=== PATIENT | female | born 1960 | race Caucasian/White ===

== ENCOUNTER 2020-04-22 15:01 | Emergency (ER) | payer BC, MEDICAID ==
[2020-04-22] MEDS ORDERED: Sodium Chloride 0.9% 1,000 ML IV ONE (15:40)
[2020-04-22] MEDS ORDERED: Ondansetron 4 MG/2 ML SDV IVPUSH ONE ×2 (15:49→18:49)
[2020-04-22] MEDS ORDERED: Morphine 2 MG/ML SYRINGE IVPUSH ONE (16:14)
--- NOTE | 2020-04-22 16:24 | PCM.SN.2 ---
- Free Text/Narrative Note: 12-Lead ECG Interpretation Acquired: 4:08 PM Rhythm: Sinus rhythm Rate: 80 bpm Caruthers: Normal Intervals: Normal Ectopy: None RV Strain: No obvious RV strain pattern. ST Segments/T-Waves: T wave inversions in lead III, otherwise no notable changes Acute Ischemic Changes: None apparent Interpretation: No STEMI
--- NOTE | 2020-04-22 16:34 | CR ---
Indication: Vomiting Technique: Chest 1 view Comparison: None Findings/Impression: Cardiovascular and mediastinum: Heart size and vasculature are normal in caliber and appearance. Mediastinum is within normal limits. Lungs and pleural space: Lungs are clear. No sign of infiltrate or mass. No sign of pleural effusion. No pneumothorax. Bones and soft tissues: No significant findings. Dictated by Ana Cristina Helm MD @ Apr 22 2020 4:32PM Signed by Dr. Ana Cristina Helm @ Apr 22 2020 4:33PM
[2020-04-22 16:37] LABS: BLOOD UREA NITROGEN,BUN 16 mg/dL (7.0-18.0); CARBON DIOXIDE,CO2 26.5 mmol/L (21.0-32.0); CHLORIDE,CL 102 mmol/L (98-107); GLUCOSE RANDOM 174 mg/dL (74-106); LIPASE 105 U/L (73-393); POTASSIUM,K 4.1 mmol/L (3.5-5.1); SODIUM,NA 139 mmol/L (136-145)
--- NOTE | 2020-04-22 16:59 | EDM.PDOC ---
ED HPI GENERAL MEDICAL PROBLEM - General Chief Complaint: Gastrointestinal Problem Stated Complaint: FROM CLINIC Time Seen by Provider: 04/22/20 15:03 Source of Information: Reports: Patient History Limitations: Reports: No Limitations - History of Present Illness INITIAL COMMENTS - FREE TEXT/NARRATIVE: HISTORY AND PHYSICAL: History of present illness: Patient is a 59-year-old female who presents to the ED today with concern of nausea and vomiting since yesterday. Patient states that she went to the respiratory clinic to be seen and evaluated there and was sent to the emergency room for further evaluation. I did receive a call from Dr. Fowler from the respiratory clinic stating that patient has been continuously vomiting and he has been unable to assess her completely due to vomiting and feels that she needs some further intervention for her symptoms. Dr. Fowler states he has not done any testing over in the clinic. Patient states that she has been vomiting since this AM which has been worsening since being at the respiratory clinic the past few hours. She states that she has not been able to eat or drink today due to vomiting. Patient states she has a history of diabetes, and hyperlipidemia. Patient denies any other associated symptoms. Patient denies any associated abdominal pain. Patient denies fever, chills, chest pain, shortness of breath, or cough. Denies headache, neck stiff ness, change in vision, syncope, or near syncope. Denies diarrhea, constipation, or dysuria. Has not noted any blood in urine or stool. Review of systems: As per history of present illness and below otherwise all systems reviewed and negative. Past medical history: As per history of present illness and as reviewed below otherwise noncontributory. Surgical history: As per history of present illness and as reviewed below otherwise noncontributory. Social history: See social history for further information Family history: As per history of present illness and as reviewed below otherwise noncontributory. Physical exam: General: Patient is alert, oriented, and in no acute distress. Patient laying comfortably on exam table, tired appearing. HEENT: Atraumatic, normocephalic, pupils equal and reactive bilaterally, negative for conjunctival pallor or scleral icterus, mucous membranes moist, TMs normal bilaterally, throat clear, neck supple, nontender, trachea midline. No drooling or trismus noted. No meningeal signs. No hot potato voice noted. Lungs: Clear to auscultation, breath sounds equal bilaterally, chest nontender. Heart: S1S2, regular rate and rhythm without overt murmur Abdomen: Soft, nondistended, nontender, negative Sullivan sign, negative rebound tenderness. Negative for masses or hepatosplenomegaly. Negative for costovertebral tenderness. Pelvis: Stable nontender. Genitourinary: Deferred. Rectal: Deferred. Skin: Intact, warm, dry. No lesions or rashes noted. Extremities: Atraumatic, negative for cords or calf pain. Neurovascular u nremarkable. Neuro: Awake, alert, oriented. Cranial nerves II through XII unremarkable. Cerebellum unremarkable. Motor and sensory unremarkable throughout. Exam nonfocal. Notes: HEART score 2. Low to moderate risk. Upon initial exam, patient is tired appearing but is not vomiting. Vitals stable. She does not have any vomiting today in the ER. Patient is requesting discharge from the ED and does not want to stay to repeat troponin for a second time. Upon discharge, as patient was about to leave, she began vomiting. She then informs me that she has been having heart burn that she forgot to inform me of upon initial HPI. Upon reexamination, vitals remain stable. Patient is agreeable to staying for repeat troponin, ekg, and further therapeutics. Zofran, Benadryl, GI cocktail and Protonix given. At this time, repeat troponin and EKG were performed. No acute changes on eKG and troponin negative. Following reevaluation of patient, she no longer has any episodes of vomiting, states she feels improved, and able to tolerate PO intake. She is requesting discharge from the ED. Strict return precautions thoroughly discussed and discussed the importance for follow up with a PCP. Voices understanding and is agreeable to plan of care. Denies any further questions or concerns at this time. Diagnostics: CBC, CMP, UA, Lipase, EKG x 2, CXR, Trop x 2, Abd/Pelvic CT w cont., COVID19 Therapeutics: NS, Zofran, Morphine, Protonix, GI Cocktail, Benadryl Prescription: Zofran Impression: Nausea and vomiting Heartburn Plan: 1. Take patient as prescribed. 2. You can take [id number] Prilosec as directed and as discussed. 3. Return to the ED as needed and as discussed. Follow up with a primary care provider as discussed. Definitive disposition and diagnosis as appropriate pending reevaluation and review of above. Upper Abdomen Pain Score (Numeric/FACES): 5 - Related Data Allergies Allergy/AdvReac Type Severity Reaction Status Date / Time No Known Allergies Allergy Verified 04/22/20 15:04 Home Meds: Home Meds Aspirin 81 mg PO DAILY 04/22/20 [History] Ondansetron [Zofran ODT] 4 mg PO Q6H PRN #8 tab.dis 04/22/20 [Rx] Sertraline [Zoloft] 25 mg PO DAILY 04/22/20 [History] atorvaSTATin [Lipitor] 10 mg PO DAILY 04/22/20 [History] lisinopriL [Lisinopril] 10 mg PO DAILY 04/22/20 [History] metFORMIN [Glucophage] 850 mg PO BID 04/22/20 [History] Past Medical History HEENT History: Reports: None Cardiovascular History: Reports: High Cholesterol, Hypertension Respiratory History: Reports: None Gastrointestinal History: Reports: GERD Genitourinary History: Reports: None 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: Musculoskeletal History: Reports: Arthritis Neurological History: Reports: None Psychiatric History: Reports: Anxiety Endocrine/Metabolic History: Reports: Diabetes, Type II Hematologic History: Reports: None Oncologic (Cancer) History: Reports: None Dermatologic History: Reports: None - Infectious Disease History Infectious Disease History: Reports: None Social & Family History - Tobacco Use Tobacco Use Status *Q: Never Tobacco User - Caffeine Use Caffeine Use: Reports: Coffee - Recreational Drug Use Recreational Drug Use: No ED ROS GENERAL - Review of Systems Review Of Systems: Comprehensive ROS is negative, except as noted in HPI. ED EXAM, GENERAL - Physical Exam Exam: See Below (see dictation) Course - Vital Signs Last Recorded V/S: Last Vital Signs Temp 96.9 F 04/22/20 21:05 Pulse 84 04/22/20 21:05 Resp 18 04/22/20 21:05 BP 145/82 H 04/22/20 21:05 Pulse Ox 94 L 04/22/20 21:05 - Orders/Labs/Meds Orders: Active Orders 24 hr Category Date Time Status CORONAVIRUS COVID-19 PCR PHL Stat Lab 04/22/20 16:40 Ordered Labs: Laboratory Tests 12/01/20 12/01/20 12/01/20 Range/Units 16:00 16:00 16:00 WBC 12.90 H (4.0-11.0) K/uL RBC 4.99 (4.30-5.90) M/uL Hgb 15.2 (12.0-16.0) g/dL Hct 45.4 (36.0-46.0) % MCV 91.0 (80.0-98.0) fL MCH 30.5 (27.0-32.0) pg MCHC 33.5 (31.0-37.0) g/dL RDW Std Deviation 43.1 (28.0-62.0) fl RDW Coeff of Dorinda 13 (11.0-15.0) % Plt Count 409 H (150-400) K/uL MPV 9.60 (7.40-12.00) fL Neut % (Auto) 88.8 H (48.0-80.0) % Lymph % (Auto) 8.7 L (16.0-40.0) % Keith % (Auto) 2.2 (0.0-15.0) % Eos % (Auto) 0.1 (0.0-7.0) % Baso % (Auto) 0.2 (0.0-1.5) % Neut # (Auto) 11.5 H (1.4-5.7) K/uL Lymph # (Auto) 1.1 (0.6-2.4) K/uL Keith # (Auto) 0.3 (0.0-0.8) K/uL Eos # (Auto) 0.0 (0.0-0.7) K/uL Baso # (Auto) 0.0 (0.0-0.1) K/uL Nucleated RBC % 0.0 /100WBC Nucleated RBCs # 0 K/uL Sodium 139 (136-145) mmol/L Potassium 4.1 (3.5-5.1) mmol/L Chloride 102 (98-107) mmol/L Carbon Dioxide 26.5 (21.0-32.0) mmol/L BUN 16 (7.0-18.0) mg/dL Creatinine 0.8 (0.6-1.0) mg/dL Est Cr Clr Drug Dosing 77.32 mL/min Estimated GFR (MDRD) > 60.0 ml/min Glucose 174 H (74-106) mg/dL Calcium 9.4 (8.5-10.1) mg/dL Total Bilirubin 0.5 (0.2-1.0) mg/dL AST 12 L (15-37) IU/L ALT 34 (14-63) IU/L Alkaline Phosphatase 102 (46-116) U/L Troponin I < 0.050 (0.000-0.056) ng/mL Total Protein 8.5 H (6.4-8.2) g/dL Albumin 4.3 (3.4-5.0) g/dL Globulin 4.2 H (2.6-4.0) g/dL Albumin/Globulin Ratio 1.0 (0.9-1.6) Lipase 105 (73-393) U/L Urine Color Urine Appearance Urine pH (5.0-8.0) Ur Specific [place] (1.001-1.035) Urine Protein (NEGATIVE) mg/dL Urine Glucose (UA) (NEGATIVE) mg/dL Urine Ketones (NEGATIVE) mg/dL Urine Occult Blood (NEGATIVE) Urine Nitrite (NEGATIVE) Urine Bilirubin (NEGATIVE) Urine Urobilinogen (<2.0) EU/dL Ur Leukocyte Esterase (NEGATIVE) Urine RBC (0-2/HPF) Urine WBC (0-5/HPF) Ur Epithelial Cells (NONE-FEW) Urine Bacteria (NEGATIVE) SARS CoV-2 RNA Rapid JAN (NEGATIVE) 04/22/20 04/22/20 04/22/20 Range/Units 16:36 17:30 19:30 WBC (4.0-11.0) K/uL RBC (4.30-5.90) M/uL Hgb (12.0-16.0) g/dL Hct (36.0-46.0) % MCV (80.0-98.0) fL MCH (27.0-32.0) pg MCHC (31.0-37.0) g/dL RDW Std Deviation (28.0-62.0) fl RDW Coeff of Dorinda (11.0-15.0) % Plt Count (150-400) K/uL MPV (7.40-12.00) fL Neut % (Auto) (48.0-80.0) % Lymph % (Auto) (16.0-40.0) % Keith % (Auto) (0.0-15.0) % Eos % (Auto) (0.0-7.0) % Baso % (Auto) (0.0-1.5) % Neut # (Auto) (1.4-5.7) K/uL Lymph # (Auto) (0.6-2.4) K/uL Keith # (Auto) (0.0-0.8) K/uL Eos # (Auto) (0.0-0.7) K/uL Baso # (Auto) (0.0-0.1) K/uL Nucleated RBC % /100WBC Nucleated RBCs # K/uL Sodium (136-145) mmol/L Potassium (3.5-5.1) mmol/L Chloride (98-107) mmol/L Carbon Dioxide (21.0-32.0) mmol/L BUN (7.0-18.0) mg/dL Creatinine (0.6-1.0) mg/dL Est Cr Clr Drug Dosing mL/min Estimated GFR (MDRD) ml/min Glucose (74-106) mg/dL Calcium (8.5-10.1) mg/dL Total Bilirubin (0.2-1.0) mg/dL AST (15-37) IU/L ALT (14-63) IU/L Alkaline Phosphatase (46-116) U/L Troponin I < 0.050 (0.000-0.056) ng/mL Total Protein (6.4-8.2) g/dL Albumin (3.4-5.0) g/dL Globulin (2.6-4.0) g/dL Albumin/Globulin Ratio (0.9-1.6) Lipase (73-393) U/L Urine Color YELLOW Urine Appearance CLEAR Urine pH 5.5 (5.0-8.0) Ur Specific [place] >= 1.030 (1.001-1.035) Urine Protein 30 H (NEGATIVE) mg/dL Urine Glucose (UA) NEGATIVE (NEGATIVE) mg/dL Urine Ketones NEGATIVE (NEGATIVE) mg/dL Urine Occult Blood TRACE-INTACT H (NEGATIVE) Urine Nitrite NEGATIVE (NEGATIVE) Urine Bilirubin NEGATIVE (NEGATIVE) Urine Urobilinogen 0.2 (<2.0) EU/dL Ur Leukocyte Esterase NEGATIVE (NEGATIVE) Urine RBC 1-2 (0-2/HPF) Urine WBC 0-1 (0-5/HPF) Ur Epithelial Cells RARE (NONE-FEW) Urine Bacteria RARE (NEGATIVE) SARS CoV-2 RNA Rapid JAN NEGATIVE (NEGATIVE) Meds: Medications Discontinued Medications Generic Name Dose Route Start Last Admin Trade Name Macarioq PRN Reason Stop Dose Admin Al Hydroxide/Mg Hydroxide 15 0 ml 04/22/20 18:59 04/22/20 19:12 ml/ Lidocaine HCl 5 ml PO 04/22/20 19:00 1 each ONETIME ONE Administration Diphenhydramine HCl 25 mg 04/22/20 19:11 04/22/20 19:35 Benadryl IVPUSH 04/22/20 19:12 25 mg ONETIME ONE Administration Sodium Chloride 1,000 mls @ 999 mls/hr 04/22/20 15:40 04/22/20 15:52 Normal Saline IV 04/22/20 16:40 999 mls/hr BOLUS ONE Administration Pantoprazole Sodium 80 mg/ 20 mls @ 420 mls/hr 04/22/20 18:59 04/22/20 19:12 Sodium Chloride IVPUSH 04/22/20 19:01 420 mls/hr ONETIME ONE Administration Iopamidol 100 ml 04/22/20 18:23 04/22/20 18:24 Isovue Multipack-370 (76%) IVPUSH 04/22/20 18:24 100 ml ONETIME STA Administration Morphine Sulfate 2 mg 04/22/20 16:14 04/22/20 16:20 Morphine IVPUSH 04/22/20 16:15 2 mg ONETIME ONE Administration Ondansetron HCl 4 mg 04/22/20 15:49 04/22/20 15:53 Zofran IVPUSH 04/22/20 15:50 4 mg ONETIME ONE Administration Ondansetron HCl 4 mg 04/22/20 18:49 04/22/20 19:03 Zofran IVPUSH 04/22/20 18:50 4 mg ONETIME ONE Administration Departure - Departure Time of Disposition: 20:55 Disposition: Home, Self-Care 01 Clinical Impression: Heart burn Nausea and vomiting Qualifiers: Vomiting type: unspecified Vomiting Intractability: non-intractable Qualified Code(s): R11.2 - Nausea with vomiting, unspecified - Discharge Information Prescriptions: Ondansetron [Zofran ODT] 4 mg PO Q6H PRN #8 tab.dis PRN Reason: Nausea/Vomiting Instructions: Nausea and Vomiting, Adult, [id number] Referrals: Rosana Blanton NP [Primary Care Provider] - Forms: ED Department Discharge Additional Instructions: The following information is given to patients seen in the emergency department who are being discharged to home. This information is to outline your options for follow-up care. We provide all patients seen in our emergency department with a follow-up referral. The need for follow-up, as well as the timing and circumstances, are variable depending upon the specifics of your emergency department visit. If you don't have a primary care physician on staff, we will provide you with a referral. We always advise you to contact your personal physician following an emergency department visit to inform them of the circumstance of the visit and for follow-up with them and/or the need for any referrals to a consulting specialist. The emergency department will also refer you to a specialist when appropriate. This referral assures that you have the opportunity for follow-up care with a specialist. All of these measure are taken in an effort to provide you with optimal care, which includes your follow-up. Under all circumstances we always encourage you to contact your private physic que who remains a resource for coordinating your care. When calling for follow- up care, please make the office aware that this follow-up is from your recent emergency room visit. If for any reason you are refused follow-up, please contact the [facility] Emergency Department at and asked to speak to the emergency department charge nurse. [facility] [address] [place] [id number] [address] [address] 1. Take patient as prescribed. 2. You can take [id number] Prilosec as directed and as discussed. 3. Return to the ED as needed and as discussed. Follow up with a primary care provider as discussed. Sepsis Event Note (ED) - Evaluation Sepsis Screening Result: No Definite Risk - Focused Exam Vital Signs: Vital Signs Temp Pulse Resp BP Pulse Ox 04/22/20 21:05 96.9 F 84 18 145/82 H 94 L 04/22/20 20:33 96.8 F L 63 18 153/73 H 95 04/22/20 17:37 94 16 171/76 H 97 04/22/20 16:40 77 16 150/73 H 95 04/22/20 16:21 77 16 166/83 H 96 04/22/20 15:35 70 145/79 H 93 L 04/22/20 15:06 96.2 F L 77 16 162/75 H 94 L - My Orders Last 24 Hours: My Active Orders 04/22/20 16:40 CORONAVIRUS COVID-19 PCR PHL Stat - Assessment/Plan Last 24 Hours: My Active Orders 04/22/20 16:40 CORONAVIRUS COVID-19 PCR PHL Stat
--- NOTE | 2020-04-22 17:57 | CT ---
INDICATION: Periumbilical pain, vomiting TECHNIQUE: CT abdomen and pelvis acquired with 100 cc Isovue 370 IV contrast. COMPARISON: None FINDINGS: Lower chest: Bilateral breast implants. Liver: Unremarkable. Spleen: Unremarkable. Pancreas: Unremarkable. Gallbladder and bile ducts: S/p cholecystectomy. Adrenal glands: Unremarkable. Kidneys: Unremarkable. GI tract: Colonic diverticulosis. Appendix is normal. Vascular structures: Minimal atherosclerotic calcifications. Lymph nodes: Unremarkable. Miscellaneous: Unremarkable. No free air or significant free fluid. Pelvic Organs: Unremarkable. Bones: Unremarkable for age. IMPRESSION: No acute intra-abdominal process identified. Colonic diverticulosis. Status post cholecystectomy. Please note that all CT scans at this facility use dose modulation, iterative reconstruction, and/or weight-based dosing when appropriate to reduce radiation dose to as low as reasonably achievable. Dictated by Ana Cristina Helm MD @ Apr 22 2020 5:49PM Signed by Dr. Ana Cristina Helm @ Apr 22 2020 5:55PM
[2020-04-22] MEDS ORDERED: Iopamidol 755 MG/ML 500 ML Multipack Bottle IVPUSH STA (18:23)
[2020-04-22] MEDS ORDERED: Pantoprazole 80 MG in Sodium Chloride 0.9% 20 ML IVPUSH ONE (18:59)
[2020-04-22] MEDS ORDERED: Alum Hydrox/Mag Hydrox/Simeth 15 ML, Lidocaine 2% 5 ML PO ONE ×2 (18:59)
[2020-04-22] MEDS ORDERED: diphenhydrAMINE 50 MG/ML SDV IVPUSH ONE (19:11)
--- NOTE | 2020-04-22 19:57 | PCM.SN.2 ---
- Free Text/Narrative Note: EKG obtained on April 22 1942 hrs. interpreted by myself contemporaneously demonstrates normal sinus rhythm with a rate of 70 normal axis and intervals no acute ischemia.
== END 2020-04-22 21:05 | disposition home or self-care (01) ==
LOC: MW.ED 15:01
DX: R11.2 Nausea with vomiting, unspecified (principal); R12 Heartburn; I10 Essential (primary) hypertension; E78.00 Pure hypercholesterolemia, unspecified; M19.90 Unspecified osteoarthritis, unspecified site; F41.9 Anxiety disorder, unspecified; E11.9 Type 2 diabetes mellitus without complications; Z79.82 Long term (current) use of aspirin; Z79.899 Other long term (current) drug therapy; Z79.84 Long term (current) use of oral hypoglycemic drugs; Z20.828 Contact with and (suspected) exposure to other viral communicable diseases
CPT/HCPCS: 36415; 71045; 74177; 80053; 81001; 83690; 84484; 85025; 87635; 93005; 96374; 96375; 96376; 99284; A9270; C9113; J1200; J2270; J2405; J7030; Q9967; 93010; U0002

== ENCOUNTER 2020-06-24 11:11 | Day surgery (SDC) | payer BC, MEDICAID ==
[~2020-06-24 11:11] MED LIST: Glycopyrrolate 0.2 MG/ML SDV ONE; Lactated Ringers 1,000 ML IV SCH; Lidocaine 2% 5 ML SDV ONE; Midazolam 1 MG/ML 2 ML SDV ONE; Propofol 200 MG/20 ML SDV ONE; Sodium Chloride 0.9% 10 ML SDV IV PRN; Sodium Chloride 0.9% 10 ML Syringe FLUSH PRN; Sodium Chloride 0.9% 2.5 ML Syringe FLUSH PRN
--- NOTE | 2020-06-24 11:45 | PCM.PREANE ---
Preanesthetic Assessment - Anesthesia/Transfusion/Family Hx Anesthesia History: Prior Anesthesia Without Reaction Family History of Anesthesia Reaction: No Transfusion History: No Prior Transfusion(s) - Review of Systems General: No Symptoms Pulmonary: No Symptoms Cardiovascular: No Symptoms Gastrointestinal: No Symptoms Neurological: No Symptoms Other: Reports: None - Physical Assessment NPO Status Date: 06/23/20 Height: 5 ft 8 in Weight: 98.43 kg ASA Class: 2 Mental Status: Alert & Oriented x3 Airway Class: Mallampati = 2 Dentition: Reports: Normal Dentition ROM/Head Extension: Full Lungs: Clear to Auscultation, Normal Respiratory Effort Cardiovascular: Regular Rate, Regular Rhythm - Allergies Allergies/Adverse Reactions: Allergies Allergy/AdvReac Type Severity Reaction Status Date / Time No Known Allergies Allergy Verified 06/18/20 09:43 - Blood Blood Available: No - Anesthesia Plan Pre-Op Medication Ordered: None - Acknowledgements Anesthesia Type Planned: General Anesthesia Pt an Appropriate Candidate for the Planned Anesthesia: Yes Alternatives and Risks of Anesthesia Discussed w Pt/Guardian: Yes Pt/Guardian Understands and Agrees with Anesthesia Plan: Yes PreAnesthesia Questionnaire HEENT History: Reports: None Cardiovascular History: Reports: High Cholesterol, Hypertension Respiratory History: Reports: None Gastrointestinal History: Reports: GERD Genitourinary History: Reports: None 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: Musculoskeletal History: Reports: Arthritis Other Musculoskeletal History: hx of fx arm as a child Neurological History: Reports: None Psychiatric History: Reports: Anxiety Endocrine/Metabolic History: Reports: Diabetes, Type II Other Endocrine/Metabolic History: has taken Synthroid in the past- not for 4 months because "numbers are better" Hematologic History: Reports: None Oncologic (Cancer) History: Reports: None Dermatologic History: Reports: None - Infectious Disease History Infectious Disease History: Reports: None - Past Surgical History Head Surgeries/Procedures: Reports: None GI Surgical History: Reports: Cholecystectomy, Colonoscopy, Other (See Below) Other GI Surgeries/Procedures: Abdominal Liposuction Female Surgical History: Reports: Breast Implant Musculoskeletal Surgical History: Reports: Arthroscopic Knee, Carpal Tunnel, Other (See Below) Other Musculoskeletal Surgeries/Procedures:: arthroscopy left knee, right CTR, ligament repair in ankle - SUBSTANCE USE Tobacco Use Status *Q: Never Tobacco User Recreational Drug Use History: No - HOME MEDS Home Medications: Home Meds Aspirin 81 mg PO DAILY 04/22/20 [History] Sertraline [Zoloft] 150 mg PO DAILY 04/22/20 [History] atorvaSTATin [Lipitor] 80 mg PO BEDTIME 04/22/20 [History] lisinopriL [Lisinopril] 10 mg PO QAM 04/22/20 [History] metFORMIN [Glucophage] 850 mg PO BID 04/22/20 [History] - CURRENT (IN HOUSE) MEDS Current Meds: Current Medications Lactated Ringer's (Ringers, Lactated) 1,000 mls @ 125 mls/hr IV ASDIRECTED JORDYN Sodium Chloride (Saline Flush) 10 ml FLUSH ASDIRECTED PRN PRN Reason: Keep Vein Open Sodium Chloride (Saline Flush) 2.5 ml FLUSH ASDIRECTED PRN PRN Reason: Keep Vein Open Sodium Chloride (Saline Flush) 10 ml FLUSH ASDIRECTED PRN PRN Reason: Keep Vein Open Sodium Chloride (Saline Flush) 2.5 ml FLUSH ASDIRECTED PRN PRN Reason: Keep Vein Open Sodium Chloride (Normal Saline) 10 ml IV ASDIRECTED PRN PRN Reason: IV Use Discontinued Medications Glycopyrrolate (Robinul) Confirm Administered Dose 0.2 mg .ROUTE .STK-MED ONE Stop: 06/24/20 11:03 Lidocaine (Xylocaine-Mpf 2%) Confirm Administered Dose 5 ml .ROUTE .STK-MED ONE Stop: 06/24/20 11:03 Midazolam HCl (Versed 1 Mg/Ml) Confirm Administered Dose 2 mg .ROUTE .STK-MED ONE Stop: 06/24/20 11:02 Propofol (Diprivan 20 Ml) Confirm Administered Dose 600 mg .ROUTE .STK-MED ONE Stop: 06/24/20 11:02
--- NOTE | 2020-06-24 13:46 | PCM.OPNOTE ---
- General Post-Op/Procedure Note Date of Surgery/Procedure: 06/24/20 Operative Procedure(s): Diagnostic EGD and colonoscopy Findings: Normal EGD, biopsies taken of esophagus, antrum body fundus, normal colonoscopy Pre Op Diagnosis: Epigastric pain, change in bowel habits Post-Op Diagnosis: same Anesthesia Technique: MAC Primary Surgeon: Vianca Zapata Condition: Good
--- NOTE | 2020-06-24 14:51 | PCM.POSTAN ---
POST ANESTHESIA ASSESSMENT - MENTAL STATUS Mental Status: Alert, Oriented - VITAL SIGNS Vital Signs: Last Vital Signs Temp 98.1 F 06/24/20 13:56 Pulse 63 06/24/20 13:56 Resp 15 06/24/20 13:56 BP 105/62 06/24/20 13:56 Pulse Ox 96 06/24/20 13:56 - RESPIRATORY Respiratory Status: Respiratory Rate WNL, Airway Patent, O2 Saturation Stable - CARDIOVASCULAR CV Status: Pulse Rate WNL, Blood Pressure Stable - GASTROINTESTINAL GI Status: No Symptoms - POST OP HYDRATION Hydration Status: Adequate & Stable
--- NOTE | 2020-06-24 14:52 | PCM48HPAN ---
Post Anesthesia Note - EVALUATION WITHIN 48HRS OF ANESTHETIC Vital Signs in Normal Range: Yes Patient Participated in Evaluation: Yes Respiratory Function Stable: Yes Airway Patent: Yes Cardiovascular Function Stable: Yes Hydration Status Stable: Yes Pain Control Satisfactory: Yes Nausea and Vomiting Control Satisfactory: Yes Mental Status Recovered: Yes Vital Signs: Last Vital Signs Temp 98.1 F 06/24/20 13:56 Pulse 63 06/24/20 13:56 Resp 15 06/24/20 13:56 BP 105/62 06/24/20 13:56 Pulse Ox 96 06/24/20 13:56
--- NOTE | 2020-06-25 13:07 | OR ---
SURGEON: VIANCA ZAPATA MD DATE OF PROCEDURE: 06/24/2020 PREOPERATIVE DIAGNOSES: Epigastric pain, nausea, vomiting, change in bowel habits. POSTOPERATIVE DIAGNOSES: Normal esophagogastroduodenoscopy, diverticulosis PROCEDURES PERFORMED: Diagnostic esophagogastroduodenoscopy and colonoscopy. PRIMARY SURGEON: Endoscopist: Vianca Zapata MD. ANESTHESIA: MAC. INSTRUMENT USED: Olympus endoscope and colonoscope. EXTENT OF EXAMINATION: To the second portion of duodenum, to the cecum. PREPARATION: Good. LIMITATIONS: None. INDICATIONS FOR EXAMINATION: The patient is a 59-year-old female who presented to clinic with changes in her bowel habits as well as complaints of chronic epigastric pain, nausea and vomiting. The patient underwent a CT scan which showed mild colonic diverticulosis with no evidence of diverticulitis. The decision was made to proceed with a diagnostic esophagogastroduodenoscopy and colonoscopy. I explained the procedure to the patient as well as the expected perioperative course, and risks. She verbalized understanding and wishes to proceed. PROCEDURE IN DETAIL: The patient was brought into the endoscopy suite and placed in the left lateral decubitus position. A time-out was completed verifying the patient's name, age, date of , allergies, and procedure to be performed. Monitored anesthesia care was induced and continuous oxygen was provided via face mask throughout the procedure. A bite block was placed into the patient's mouth. After adequate sedation was achieved, a well-lubricated endoscope was placed in the patient's mouth and advanced under direct visualization to the second portion of duodenum. This appeared normal and a photograph was taken. The scope was then fully withdrawn while examining the color, texture, anatomy, and integrity of mucosa of the upper GI tract. The duodenum appeared normal. The scope was brought into the stomach and a photograph taken of the pylorus and GE junction. Biopsies were taken of the gastric antrum, body, and fundus and sent for histologic review and H pylori testing. The gastric anatomy and mucosa all appeared normal. The scope was brought into the distal esophagus and a photograph was taken of a normal-appearing Z-line. The remainder of the esophagus appeared free of pathology. The scope was removed and this portion of the procedure was terminated. A digital rectal exam was performed. This exam was within normal limits. A well-lubricated colonoscope was inserted in the rectum and advanced under direct visualization to the level of the cecum. The cecum was identified by both visual and anatomic landmarks. A photograph was taken of the cecal cap as well as with the scope retroflexed within the cecum. The patient was noted to have a diverticula within the cecal cap. The scope was fully withdrawn while examining the color, texture, anatomy, and integrity of the mucosa from the cecum to the anal canal. The findings were consistent with normal appearing colonic mucosa. No polyps were seen. The scope was brought into the rectum and retroflexed to allow visualization of the anal canal opening. This appeared normal and a photograph was taken. The scope was straightened out and fully withdrawn. The cecum to anus time was 8 minutes. The patient tolerated the procedure well and was transferred to the PACU in stable condition. ENDOSCOPIC DIAGNOSES: 1. Diverticulosis. 2. Normal appearing esophagogastroduodenoscopy. RECOMMENDATIONS: Follow up in clinic in 2 weeks. DIMITRIOS ACOSTA /[id number] DORIAN
== END 2020-06-24 14:25 | disposition home or self-care (01) ==
LOC: MW.SDS 11:11
PROVIDERS: ATTEND Surgery
DX: K57.30 Diverticulosis of large intestine without perforation or abscess without bleeding (principal); G89.29 Other chronic pain; R10.13 Epigastric pain; I10 Essential (primary) hypertension; E03.9 Hypothyroidism, unspecified; E11.9 Type 2 diabetes mellitus without complications; E55.9 Vitamin D deficiency, unspecified; Z79.82 Long term (current) use of aspirin; Z79.84 Long term (current) use of oral hypoglycemic drugs; Z79.899 Other long term (current) drug therapy; Z98.890 Other specified postprocedural states; E78.00 Pure hypercholesterolemia, unspecified
CPT/HCPCS: 43239; 45378; 82962; 88305; 88312; J2250; J2704; J3490; J7120; 00813; J2001

== ENCOUNTER 2022-02-21 18:58 | Observation (INO) | payer BC ==
[2022-02-21] MEDS ORDERED: methylPREDNISolone Sodium Succinate 125 MG/2 ML SDV IVPUSH ONE ×2 (19:41→19:42)
[2022-02-21] MEDS ORDERED: EPINEPHrine 1 MG/1 ML Amp IM ONE (22:00)
[2022-02-21] MEDS ORDERED: EPINEPHrine 1 MG/1 ML Amp ONE (22:02)
[2022-02-21] MEDS ORDERED: diphenhydrAMINE 50 MG/ML SDV IVPUSH ONE (22:02)
[2022-02-21] MEDS ORDERED: Sodium Chloride 0.9% Inhalation Soln 3 ML Neb INH PRN (22:19)
[2022-02-21] MEDS ORDERED: Racepinephrine 2.25% 0.5 ML Neb Soln NEB ONE (22:19)
[2022-02-21] MEDS ORDERED: Famotidine 20 MG/2 ML SDV IVPUSH STA (22:21)
[2022-02-22] MEDS ORDERED: Aspirin 81 MG Tab.EC ONE (11:03)
[2022-02-22] MEDS ORDERED: diphenhydrAMINE 50 MG/ML SDV ONE ×2 (11:03→19:24)
[2022-02-22] MEDS ORDERED: Insulin Aspart 100 Units/ML 3 ML Pen ONE (11:03)
[2022-02-22] MEDS ORDERED: atorvaSTATin 40 MG Tab ONE (21:42)
[2022-02-23] MEDS ORDERED: diphenhydrAMINE 50 MG/ML SDV ONE ×3 (01:40→11:47)
[2022-02-23] MEDS ORDERED: Aspirin 81 MG Tab.Chew ONE (08:07)
[2022-02-24] MEDS ORDERED: methylPREDNISolone Sodium Succinate 40 MG/1 ML SDV ONE (15:05)
[2022-03-26 11:04] LABS: CARBON DIOXIDE,CO2 21.8 mmol/L (21.0-32.0); POTASSIUM,K 3.9 mmol/L (3.5-5.1)
[2022-04-02 12:13] LABS: CARBON DIOXIDE,CO2 25.4 mmol/L (21.0-32.0); POTASSIUM,K 3.7 mmol/L (3.5-5.1)
== END 2022-02-23 13:30 | disposition home or self-care (01) ==
LOC: MW.ED 18:58 → MW.MS 23:57 → MW.ZCENSUS 02-22 13:52
PROVIDERS: ADMIT Internal Medicine; ATTEND Internal Medicine
DX: T78.3XXA Angioneurotic edema, initial encounter (principal); I10 Essential (primary) hypertension; E11.9 Type 2 diabetes mellitus without complications; E78.00 Pure hypercholesterolemia, unspecified; F41.9 Anxiety disorder, unspecified; F32.A Depression, unspecified; Z79.82 Long term (current) use of aspirin; Z90.49 Acquired absence of other specified parts of digestive tract; Z98.890 Other specified postprocedural states; Z20.822 Contact with and (suspected) exposure to COVID-19; Z79.899 Other long term (current) drug therapy; Z79.84 Long term (current) use of oral hypoglycemic drugs; Z88.8 Allergy status to other drugs, medicaments and biological substances; Z91.013 Allergy to seafood
CPT/HCPCS: 36415; 71045; 80048; 82947; 85025; 87635; A9270; J0171; J1200; J1815; J2930; J3490; 99217; 99218; 99284; U0002

== ENCOUNTER 2022-06-27 20:48 | Emergency (ER) | payer BC ==
[2022-06-27] MEDS ORDERED: Triamcinolone Acetonide 40 MG/ML 1 ML SDV INJECT ONE (22:07)
[2022-06-27] MEDS ORDERED: Lidocaine 1% 5 ML VIAL INJECT ONE (22:08)
[2022-06-29 09:07] LABS: BASO'S 0 x10-3 ul; EO'S 0 x10-3 ul; LYMPH'S 77 x10-3 ul; MONO'S 112 x10-3 ul; OTHER 198 x10-3 ul; PMN'S 0 x10-3 ul
== END 2022-06-27 23:08 | disposition home or self-care (01) ==
LOC: MW.ED 20:48
DX: M25.462 Effusion, left knee (principal); I10 Essential (primary) hypertension; E11.9 Type 2 diabetes mellitus without complications; F41.9 Anxiety disorder, unspecified; E78.00 Pure hypercholesterolemia, unspecified; M19.90 Unspecified osteoarthritis, unspecified site; Z91.013 Allergy to seafood; Z88.8 Allergy status to other drugs, medicaments and biological substances; Z79.82 Long term (current) use of aspirin
CPT/HCPCS: 20610; 73562; 87070; 87075; 87205; 89051; 89060; 99283; J3301; J3490

== ENCOUNTER 2022-09-01 20:19 | Emergency (ER) | payer BC ==
[2022-09-01] MEDS ORDERED: Acetaminophen 500 MG Tab PO ONE (21:53)
[2022-09-01] MEDS ORDERED: Ibuprofen 600 MG Tab PO ONE (23:28)
== END 2022-09-01 23:46 | disposition home or self-care (01) ==
LOC: MW.ED 20:19
DX: M25.562 Pain in left knee (principal); E78.00 Pure hypercholesterolemia, unspecified; I10 Essential (primary) hypertension; K21.9 Gastro-esophageal reflux disease without esophagitis; E11.9 Type 2 diabetes mellitus without complications; Z91.018 Allergy to other foods; Z88.8 Allergy status to other drugs, medicaments and biological substances; Z79.82 Long term (current) use of aspirin; Z79.899 Other long term (current) drug therapy; Z79.84 Long term (current) use of oral hypoglycemic drugs
CPT/HCPCS: 73562; 93971; 99284; A9270; 99283

== ENCOUNTER 2023-08-17 09:11 | Day surgery (SDC) | payer BC ==
[~2023-08-17 09:11] MED LIST changes: -Glycopyrrolate 0.2 MG/ML SDV ONE; -Lactated Ringers 1,000 ML IV SCH; -Lidocaine 2% 5 ML SDV ONE; -Midazolam 1 MG/ML 2 ML SDV ONE; -Propofol 200 MG/20 ML SDV ONE; -Sodium Chloride 0.9% 10 ML SDV IV PRN; -Sodium Chloride 0.9% 10 ML Syringe FLUSH PRN; -Sodium Chloride 0.9% 2.5 ML Syringe FLUSH PRN; +ceFAZolin 2 GM in Sodium Chloride 0.9% 50 ML IV ONE
[2023-08-17] MEDS ORDERED: droPERidol 5 MG/2 ML SDV IVPUSH PRN (09:12)
[2023-08-17] MEDS ORDERED: HYDROmorphone 1 MG/ML Syringe IVPUSH PRN (09:12)
[2023-08-17] MEDS ORDERED: Metoclopramide 10 MG/2 ML SDV IVPUSH PRN (09:12)
[2023-08-17] MEDS ORDERED: fentaNYL 50 MCG/ML SDV IVPUSH PRN (09:12)
[2023-08-17] MEDS ORDERED: Ondansetron 4 MG/2 ML SDV IVPUSH PRN (09:12)
[2023-08-17] MEDS ORDERED: Morphine 2 MG/ML SYRINGE IVPUSH PRN (09:12)
[2023-08-17] MEDS ORDERED: Albuterol 0.083% 2.5 MG/3 ML Neb Soln NEB PRN (09:12)
[2023-08-17] MEDS ORDERED: Naloxone 0.4 MG/ML SDV IVPUSH PRN (09:12)
[2023-08-17] MEDS ORDERED: Ketorolac 30 MG/ML SDV ONE (10:12)
[2023-08-17] MEDS ORDERED: Ropivacaine 0.5% 5 MG/ML 30 ML SDV ONE (10:24)
[2023-08-17] MEDS ORDERED: Lidocaine 2% 5 ML SDV ONE (10:24)
[2023-08-17] MEDS: Lactated Ringers 1,000 ML IV SCH (10:29)
[2023-08-17] MEDS ORDERED: Bupivacaine 0.5%/EPINEPHrine 1:200,000 30 ML SDV ONE (10:47)
[2023-08-17] MEDS ORDERED: Ondansetron 4 MG/2 ML SDV ONE (10:51)
[2023-08-17] MEDS ORDERED: ceFAZolin 2 GM Vial ONE (11:47)
[2023-08-17] MEDS ORDERED: propofoL 50 ML ONE (12:16)
== END 2023-08-17 15:35 | disposition home or self-care (01) ==
LOC: MW.SDS 09:11
PROVIDERS: ATTEND Orthopaedic Surgery
DX: S83.249A Other tear of medial meniscus, current injury, unspecified knee, initial encounter (principal); M70.31 Other bursitis of elbow, right elbow; I10 Essential (primary) hypertension; J06.9 Acute upper respiratory infection, unspecified; M17.9 Osteoarthritis of knee, unspecified; E78.00 Pure hypercholesterolemia, unspecified; E78.5 Hyperlipidemia, unspecified; E11.9 Type 2 diabetes mellitus without complications; E03.9 Hypothyroidism, unspecified; G62.9 Polyneuropathy, unspecified; E55.9 Vitamin D deficiency, unspecified; F17.200 Nicotine dependence, unspecified, uncomplicated; Z88.8 Allergy status to other drugs, medicaments and biological substances; Z79.899 Other long term (current) drug therapy
CPT/HCPCS: 29881; 64448; J0131; J0690; J1885; J2405; J2704; J2795; J7120; J3490

== ENCOUNTER 2023-10-23 10:21 | Emergency (ER) | payer BC ==
[2023-10-23] MEDS: Acetaminophen/HYDROcodone 325-5 MG Tab PO ONE (11:28)
[2023-10-23] MEDS: Amoxicillin/Clavulanate K 875-125 MG Tab PO ONE (11:29)
[2023-10-23] MEDS: Mupirocin Oint 22 GM Tube TOP ONE (11:29)
[2023-10-23] MEDS: Bacitracin Oint 1 GM U/D Packet TOP ONE (11:38)
== END 2023-10-23 11:46 | disposition home or self-care (01) ==
LOC: MW.ED 10:21
DX: S51.851A Open bite of right forearm, initial encounter (principal); S61.052A Open bite of left thumb without damage to nail, initial encounter; I10 Essential (primary) hypertension; E78.00 Pure hypercholesterolemia, unspecified; Z90.49 Acquired absence of other specified parts of digestive tract; Z75.8 Other problems related to medical facilities and other health care; Z88.8 Allergy status to other drugs, medicaments and biological substances; Z91.013 Allergy to seafood; Z79.899 Other long term (current) drug therapy; Z79.85 Long-term (current) use of injectable non-insulin antidiabetic drugs; Z79.82 Long term (current) use of aspirin; Z79.84 Long term (current) use of oral hypoglycemic drugs; W54.0XXA Bitten by dog, initial encounter
CPT/HCPCS: 99283; A9270